=== PATIENT | male | born 1940 | race Caucasian/White ===

== ENCOUNTER → 2018-05-09 | Outpatient (CLI) | payer MEDICARE ==
--- NOTE | 2018-05-09 16:02 | CONS ---
CONSULTATION DATE OF SERVICE: 05/09/2018 This patient is a 78-year-old gentleman who has been evaluated in Sleep Center for possible obstructive sleep apnea-hypopnea syndrome. HISTORY OF PRESENT ILLNESS/SLEEP-WAKE EVALUATION: Patient's usual sleep schedule is from 11:30 p.m. to 8:30 a.m. Sometimes he has problems with falling asleep, has TV set in bedroom. He usually sleeps on the side position by himself, with snoring and awakenings from sleep with a dry mouth and nocturia. Patient wakes up from sleep 2 times. During the day he may take one nap at 2:30 p.m. and usually feels refreshed after the nap. [place] Sleepiness Scale is 7. PAST MEDICAL HISTORY: Positive for: 1. Hypertension. 2. Hyperlipidemia. 3. Polycythemia vera. PAST SURGICAL HISTORY: 1. Left knee surgery x2. 2. Cholecystectomy. MEDICATIONS: 1. Losartan. 2. Simvastatin. SOCIAL HISTORY: Positive for smoking for a little less than 60 pack/years; quit in March of 2018. Alcohol consumption: None at the present time. FAMILY HISTORY: Arthritis, snoring, cancer. REVIEW OF SYSTEMS: Awakenings from sleep, sometimes sleepiness and tiredness during the day. PHYSICAL EXAMINATION: GENERAL: A pleasant gentleman without distress. VITAL SIGNS: BP 116/64, HR 76, RR 18, height 6 feet 0 inches, weight 222.2, body mass index 30, temperature 97.5, oxygen saturation at room air 97%. HEENT: PERRLA, EOMI. Evaluation of oropharynx showed tongue protrudes midline. Extremely low position of soft palate. Mallampati IV. Retrognathia 3 mm. Restriction of nasal breathing. NECK: Supple. No JVD. Thyroid is not palpable. Wide neck; 17 inches in circumference. LUNGS: Clear to percussion and to auscultation. Good air exchange. No wheezing or rhonchi. HEART: S1, S2 regular. No murmurs, gallops or rubs. ABDOMEN: Soft and nontender. Bowel sounds are present. No organomegaly. EXTREMITIES: No clubbing or cyanosis. HORSE BREAKER: Awake, alert, and oriented X3. Cranial nerves 2 to 7 intact. There is no fasciculation or atrophy. noted. No focal deficits observed. IMPRESSION: 1. Snoring, awakenings from sleep with nocturia and dry mouth, extremely low position of soft palate, wide neck; obstructive sleep apnea-hypopnea syndrome. 2. History of polycythemia vera. 3. Hypertension. 4. Hyperlipidemia. 5. Status post left knee surgery x2. 6. Status post cholecystectomy. 7. Restriction of nasal breathing. PLAN: 1. Polysomnography for evaluation of patient's breathing during sleep. 2. CPAP/BiPAP titration if sleep study confirms obstructive sleep apnea-hypopnea syndrome. 3. Preferable position during sleep on the side. 4. No driving if patient feels any sleepiness. 5. I will see patient for follow up visit to explain results of testing and following plan. Thank you very much for referring this patient for consultation. Sincerely, Albert Wilks MD, PhD, FAASM Diplomat of [employer] [employer] [employer] Corrections Counselor of [facility] [place] MMODL / ANTONYN: [id number] /
== END | disposition home or self-care (01) ==
LOC: SLEEP 13:20
PROVIDERS: ATTEND Internal Medicine
DX: G47.33 Obstructive sleep apnea (adult) (pediatric) (principal); I10 Essential (primary) hypertension; E78.5 Hyperlipidemia, unspecified; J34.89 Other specified disorders of nose and nasal sinuses; Z86.2 Personal history of diseases of the blood and blood-forming organs and certain disorders involving the immune mechanism; Z87.891 Personal history of nicotine dependence; Z96.652 Presence of left artificial knee joint; Z90.49 Acquired absence of other specified parts of digestive tract; Z79.899 Other long term (current) drug therapy
CPT/HCPCS: 99211

== ENCOUNTER → 2018-07-18 | Outpatient (CLI) | payer MEDICARE ==
--- NOTE | 2018-07-18 13:31 | SFUN ---
SLEEP CENTER FOLLOW UP NOTE DATE OF SERVICE: 07/18/2018 This 78-year-old gentleman has been followed in sleep center to discuss results of sleep studies and following plan. I discussed results of sleep studies with patient and family in detail. Diagnostic sleep study showed that patient has obstructive sleep apnea-hypopnea syndrome with apnea-hypopnea index 21.5 and oxygen desaturation to 80.3%. Total oxygen level was below normal range at that night for 5.7 minutes, which could be participating factor in developing of increasing amount of red blood cells. EMG showed 61.8 periodic limb movements per hour with 1.9 microarousals per hour. During titration night with CPAP titration, patient's respiration was normalized basically starting even with lower pressure. Apnea-hypopnea index reduced to normal range. For example, at pressure 8 Apnea-hypopnea index was 2.1 with oxygen level above 89.3%. At that night oxygen level came below 88% and lowest oxygen level was 88.4%. EMG showed 44.1 periodic limb movements per hour 0.4 microarousals per hour. PHYSICAL EXAMINATION: During physical exam, patient in no distress. VITAL SIGNS: BP 126/68, HR 78, RR 16, height 6 feet, weight 227 pounds. Oxygen saturation at room air 97%. HEENT: PERRLA, EOMI. Oropharynx moderately low position of soft palate. Some redness of the face. NECK; supple, no JVD. Thyroid is not palpable. LUNGS: Clear to percussion and to auscultation. Good air exchange. No wheezing or rhonchi. HEART: S1, S2 regular. No murmurs, gallops, or rubs. ABDOMEN: Soft and nontender. Bowel sounds are present. No organomegaly appreciated. EXTREMITIES: No clubbing or cyanosis. BIOMETRICS TECHNICIAN: Awake, alert, and oriented X3. Cranial nerves 2 to 7 intact. There is no fasciculation or atrophy. noted. No focal deficits observed. IMPRESSION: 1. Moderate obstructive sleep apnea-hypopnea syndrome, apnea-hypopnea index 21.5 with oxygen saturation to 80% on control with CPAP in the range of pressure 8 cm of water. 2. Increased amount of red blood cells, possibly secondary erythrocytosis. 3. Moderate periodic limb movements have been documented during both sleep studies. 4. Hypertension. 5. Hyperlipidemia. 6. Status post left knee surgery x2. 7. Status post cholecystectomy. 8. Some restriction of nasal breathing. PLAN: 1. Patient should be started on treatment with CPAP and should use equipment every night for the whole night. Prescription should be sent to [facility] in [place]. 2. Sleep hygiene with regular time bed for at least a 7-1/2 to 8 hours. 3. No driving if feeling any sleepiness. Thank you very much for allowing me to participate in management of your patient. Sincerely, Albert Wilks MD, PhD, FAASM Diplomat of [employer] Hand Hardener of [facility] [place] MMODL / IJN: [id number] /
== END ==
LOC: SLEEP 11:21
PROVIDERS: ATTEND Internal Medicine
DX: G47.33 Obstructive sleep apnea (adult) (pediatric) (principal); R71.8 Other abnormality of red blood cells; G47.61 Periodic limb movement disorder; I10 Essential (primary) hypertension; E78.5 Hyperlipidemia, unspecified; R06.89 Other abnormalities of breathing; Z90.49 Acquired absence of other specified parts of digestive tract; Z98.890 Other specified postprocedural states; Z99.89 Dependence on other enabling machines and devices